=== PATIENT | female | born 1930 | race Caucasian/White ===

== ENCOUNTER 2019-02-16 12:02 | Emergency (ER) | payer MEDICARE, BC ==
[~2019-02-16] VITALS: Ht 165.1 cm; Wt 54.4 kg
[2019-02-16 12:10] VITALS: BP 134/80
[2019-02-16 12:27] LABS: BASOPHILS # (AUTO) 0.1 /CMM (0.0-0.2); BASOPHILS % (AUTO) 2.1 % (0.0-2.0); EOSINOPHILS % (AUTO) 1.8 % (0.0-6.0); HEMATOCRIT 42 % (33-45); LYMPHOCYTES # (AUTO) 1.6 /CMM (0.8-4.8); LYMPHOCYTES % (AUTO) 30.9 % (20.0-44.0); MEAN CORPUSCULAR HGB CONC 34 g/dl (31.0-36.0); MEAN CORPUSCULAR VOLUME 95 fL (82-100); MONOCYTES # (AUTO) 0.4 /CMM (0.1-1.30); MONOCYTES % (AUTO) 7.9 % (2.0-12.0); NEUTROPHILS % (AUTO) 57.3 % (43.0-81.0); PLATELET COUNT (AUTO) 246 /CMM (150-450); RED BLOOD CELL COUNT(AUTO) 4.36 MIL/uL (4.0-5.2); WHITE BLOOD COUNT (AUTO) 5.3 K/uL (4.3-11.0)
--- NOTE | 2019-02-16 13:27 | NUR ---
Patient discharged to home in stable condition. Written and verbal after care instructions given. Patient verbalizes understanding of instruction.
== END 2019-02-16 13:29 | disposition home or self-care (01) ==
LOC: ER 12:11
DX: S60.222A Contusion of left hand, initial encounter (principal); S60.221A Contusion of right hand, initial encounter; X58.XXXA Exposure to other specified factors, initial encounter; Y93.89 Activity, other specified; Y92.89 Other specified places as the place of occurrence of the external cause; Y99.8 Other external cause status
CPT/HCPCS: 36415; 85025-TC; 85730-TC

== ENCOUNTER 2020-02-07 02:50 | Emergency (ER) | payer MEDICARE, BC ==
[~2020-02-07] VITALS: Ht 165.1 cm; Wt 54.4 kg
--- NOTE | 2020-02-07 03:01 | NUR ---
PT AAOX4. BIBRA. PT HAS L PERIORBITAL SWELLING AND DISCOLORATION. PER PATIENT, SHE WAS TURNING IN BED AND FELT A BUMP ON THE SIDE OF HER FACE. PT LOOKED IN THE MIRROR THEN CALLED RA. DENIES FALL AND TRAUMA. NO ACUTE DISTRESS NOTED. VSS. AWAITING MD FOR EVAL. WILL CONTINUE TO MONITOR.
--- NOTE | 2020-02-07 03:15 | NUR ---
BROUGHT TO RADIOLOGY
--- NOTE | 2020-02-07 03:36 | NUR ---
PT BACK FROM RADIOLOGY
[2020-02-07] MEDS ORDERED: HYDROCODONE/APAP 5/325MG 1 EACH TABLET ONE (03:41)
--- NOTE | 2020-02-07 03:44 | NUR ---
BACK FROM CT. C/O 08/21 PAIN, GIVEN NORCO 5.
--- NOTE | 2020-02-07 03:49 | NUR ---
GRACE (DAUGHTER) CONTACT INFORMATION: [phone]
[2020-02-07] MEDS ORDERED: HYDROCODONE/APAP 5/325MG 1 EACH TABLET PO ONE (04:00)
[2020-02-07 04:35] VITALS: BP 142/83
--- NOTE | 2020-02-07 04:35 | NUR ---
Patient discharged to home in stable condition. Written and verbal after care instructions given. Patient verbalizes understanding of instruction. Pt picked up by daughter. Pt wheeled out to waiting room.
== END 2020-02-07 04:36 | disposition home or self-care (01) ==
LOC: ER 02:52
DX: S05.12XA Contusion of eyeball and orbital tissues, left eye, initial encounter (principal); S20.212A Contusion of left front wall of thorax, initial encounter; S40.022A Contusion of left upper arm, initial encounter; R51 Headache; Z60.2 Problems related to living alone; X58.XXXA Exposure to other specified factors, initial encounter; Y93.89 Activity, other specified; Y92.89 Other specified places as the place of occurrence of the external cause; Y99.8 Other external cause status
CPT/HCPCS: 70450-TC; 70486-TC; 71100-TC; 72125-TC